=== PATIENT | male | born 2005 | race Two or more races ===

== ENCOUNTER 2023-01-19 07:49 | Emergency (ER) | payer MEDICAID, SELFPAY ==
[2023-01-19 07:53] VITALS: BP 163/100; PULSE 88; RESP 18; TEMP 36.5; O2SAT 98; BMI 19.9
--- NOTE | 2023-01-19 08:19 | CT_ITS ---
The [address] [address] Patient Name: FRAN MERLOS MRN: [id number] date: 2005 Sex: M Assigned Patient Location: ER Current Patient Location: ED.MAIN Accession/Order Number: [id number] Exam Date: 01/19/2023 08:26 Report Date: 01/19/2023 08:52 At the request of: ALLIE HERNANDEZ Procedure: CT facial bones wo con EXAM: CT facial bones wo con HISTORY: Laceration over the right eyebrow after a trip and fall. COMPARISON: None. TECHNIQUE: An axial thin cut noncontrast scan was performed. Sagittal and coronal reformatted images were produced. Dose reduction techniques were achieved by using automated exposure control and/or adjustment of mA and/or kV according to patient size and/or use of iterative reconstruction technique. FINDINGS: No acute fractures are seen. No suspicious or destructive bone lesions. There is mucosal thickening in the maxillary sinuses with small air-fluid levels in the maxillary sinuses the rest of the sinuses are clear. No fluid is seen in the visualized mastoid air cells. The contents of the orbits are normal. There is mild leftward nasal septal deviation. There is some soft tissue swelling and laceration above the right eye. The rest of the visualized structures are normal in appearance. CT/CT facial bones wo con IMPRESSION: No acute osseous injury is identified. Soft tissue injury above the right eye. Acute on chronic maxillary sinus disease. Electronically authenticated by: KEVON WEINSTEIN Date: 01/19/2023 08:52
--- NOTE | 2023-01-19 08:32 | ED_ITS ---
HPI - General Adult General Chief complaint: Skin/Abscess/Foreign Body Stated complaint: LACERATION TO RIGHT EYE Time Seen by Provider: 01/19/23 08:15 Source: patient Mode of arrival: walk-in Limitations: no limitations History of Present Illness HPI narrative: The patient presenting with a right-sided facial injury that he sustained after he fell down tripping over his dog and hitting the side of his car the patient have a laceration to the upper eyelid on the right side he also has some epistaxis that resolved before arrival and his right side of the lip is swollen as well He mentioned that he is up-to-date with his vaccination but he is not sure if he had tetanus or not in the last few years No previous medical history and no loss of consciousness and no other injuries Related Data Previous Rx's Medication Instructions Recorded ibuprofen 600 mg tablet 600 mg PO Q8H PRN pain #20 tabs 01/19/23 Allergies Allergy/AdvReac Type Severity Reaction Status Date / Time No Known Drug Allergies Allergy Verified 01/19/23 07:55 Review of Systems ROS Status of ROS 10 or more systems reviewed and unremarkable except as noted in history and below Exam Narrative Exam Narrative: Nurses notes and vital signs reviewed and patient is not hypoxic. General: Well-appearing and in no apparent distress. Skin: Warm, dry, no pallor noted. No rash. Head: Normocephalic, there is a laceration just above the medial end of the eyebrow on the right side and it is including the eyebrow as well the eye itself and the eye globe shows no injury the right side of the upper and lower lip shows contusion but no laceration, there is a dry blood at the nostril entrance but there is no tenderness upon palpation of the nasal bridge although the patient have tenderness upon palpation of the orbit on the right side Lacerations almost 2 cm irregular edges macerated due to the crush and deep with no foreign body and no exposure of the underlying structures Neck: Supple, non-tender. Eye: Pupils are equal, round and EOMI. No scleral icterus. Ears, Nose, Mouth, and Throat: TM are clear, no nasal mucosal hypertrophy. Oral mucosa is moist, no posterior oropharynx erythema, uvula is mid-line Cardiovascular: Regular Rate and Rhythm without murmur, gallop or rub. Respiratory: No accessory muscle use or respiratory distress. Lungs are clear to auscultation, no wheezing, rales or rhonchi Chest Wall: no tenderness Back: No midline thoracic or lumbar vertebral tenderness. No CVA tenderness Musculoskeletal: normal ROM, no calf or popliteal tenderness, no lower extremity edema/swelling GI: Abdomen is soft, non-distended. Normal bowel sounds. No masses appreciated. No tenderness to palpation. No rebound, guarding, or rigidity noted. Neurological: A&O x4. No cranial nerve dysfunction observed. No truncal ataxia. Moves all extremities. Sensation intact. Psychiatric: Cooperative and interactive. Normal mood and affect. Constitutional Vital Signs, click to edit/add: Last Vital Signs Temp 97.7 F 01/19/23 07:53 Pulse 88 01/19/23 07:53 Resp 18 01/19/23 07:53 BP 163/100 H 01/19/23 07:53 Pulse Ox 98 01/19/23 07:53 O2 Del Method Room Air 01/19/23 07:53 Course Vital Signs Vital signs: Vital Signs Temperature 97.7 F 01/19/23 07:53 Pulse Rate 88 01/19/23 07:53 Respiratory Rate 18 01/19/23 07:53 Blood Pressure 163/100 H 01/19/23 07:53 Pulse Oximetry 98 01/19/23 07:53 Oxygen Delivery Method Room Air 01/19/23 07:53 Temperature 97.7 F 01/19/23 07:53 Pulse Rate 88 01/19/23 07:53 Respiratory Rate 18 01/19/23 07:53 Blood Pressure 163/100 H 01/19/23 07:53 Pulse Oximetry 98 01/19/23 07:53 Oxygen Delivery Method Room Air 01/19/23 07:53 Medical Decision Making [facility] Narrative Medical decision making narrative: CT of the face showed no acute pathology The patient wound was cleaned thoroughly with normal saline and Betadine after which infiltration of the area with 1% lidocaine and 4 observable stitches 5-O applied and then non interrupted 10 stitches of ethilon 5-O The patient tolerated the procedure well wound care advised and the patient to come back in case of any new symptoms or concerns Sutures to be removed 5 to 7 days after placement The patient is to follow up with primary care physician in next 2-3 days or to return to the emergency department should any of the signs or symptoms worsen or new symptoms develop. The patient agrees with the following Diagnosis and Treatment plan and the patient will be discharged home. Discharge Plan Discharge Chief Complaint: Skin/Abscess/Foreign Body Clinical Impression: Laceration of face, Contusion of face, Contusion of lip Patient Disposition: Home, Self-Care Time of Disposition Decision: 09:12 Condition: Good Mode of Transportation: Private Vehicle Prescriptions / Home Meds: New ibuprofen 600 mg tablet 600 mg PO Q8H PRN (Reason: pain) Qty: 20 0RF Instructions: Laceration (ED), Head Injury (ED) Stand Alone Forms: Portal Instructions Referrals: Physician,Non-Staff, MD [Primary Care Provider] - 1 week
[2023-01-19] MEDS: IBUPROFEN 600 MG TABLET PO (08:36)
== END 2023-01-19 09:28 | disposition home or self-care (01) ==
PROVIDERS: Emergency Provider Emergency Medicine
DX: S01.111A Laceration without foreign body of right eyelid and periocular area, initial encounter (principal); S00.531A Contusion of lip, initial encounter; W01.0XXA Fall on same level from slipping, tripping and stumbling without subsequent striking against object, initial encounter
CPT/HCPCS: 12011; 70486; 99284

== ENCOUNTER 2024-12-02 06:04 | Emergency (ER) | payer OTHER, SELFPAY ==
[2024-12-02 06:08] VITALS: BP 113/71; PULSE 87; TEMP 37.4; O2SAT 100; BMI 19.9
--- NOTE | 2024-12-02 06:29 | XR_ITS ---
[place] [address] Patient Name: FRAN MERLOS MRN: [id number] date: 2005 Sex: M Assigned Patient Location: ER Current Patient Location: Accession/Order Number: [id number] Exam Date: 12/02/2024 09:50 Report Date: 12/02/2024 09:51 At the request of: DAWN DALY MD Procedure: XR lumbar spine 2-3V 2 views Lumbar Spine HISTORY: Back pain for one month. No injury COMPARISON: None POSTSURGICAL CHANGES: None BONY ALIGNMENT: Adequate HYPERMOBILITY:No bending imaging. LISTHESIS:None FRACTURE: None DEGENERATIVE CHANGES: Mild spondylosis with lower lumbar facet degeneration. SOFT TISSUES: Unremarkable BONY MINERALIZATION:Adequate XR/XR lumbar spine 2-3V IMPRESSION: Mild lumbar spondylosis greatest at the L5-S1 level. Mild lower lumbar facet degeneration. Impression dictated by: Titus Lozada M.D. 12/02/2024 9:51 AM Dictation Location: [employer] Electronically authenticated by: [id number] Y Date: 12/02/2024 09:51
--- NOTE | 2024-12-02 07:14 | ED_ITS ---
HPI HPI - General Adult General Chief complaint: Back Pain/Injury Stated complaint: back pain Time Seen by Provider: 12/02/24 06:25 Source: patient Mode of arrival: walk-in Limitations: no limitations History of Present Illness HPI narrative: 19-year-old male presents for lower back pain. He has had it for about a month. It initially started after weightlifting but he stopped lifting weights and has been taking ibuprofen but has not gotten much better. There is no specific injury such as a fall. The pain does not radiate and he has no weakness or numbness. No abdominal pain or dysuria. Related Data Previous Rx's ?Medication ?Instructions ?Recorded ibuprofen 800 mg tablet 800 mg PO Q8H PRN pain #20 t abs 12/02/24 methocarbamol 750 mg tablet 750 mg PO Q6H PRN pain #20 tabs 12/02/24 Allergies Allergy/AdvReac Type Severity Reaction Status Date / Time No Known Drug Allergies Allergy Verified 12/02/24 06:16 Opioid HPI Opioid Management Most Recent Opioid Data: Last Pain Scale 6 Today, 06:40 Review of Systems ROS Narrative A ten point review of systems is negative except as noted above. PFSH PFSH Social History Little interest or pleasure in doing things: not at all Feeling down, depressed, or hopeless: not at all Exam Narrative Exam Narrative: Nurses note and vital signs reviewed and patient is not hypoxic. General: The patient appears well and in no apparent distress. Patient is resting comfortably on cart. Skin: Warm, dry, no pallor noted. There is no rash noted. Head: Normocephalic, atraumatic Eye: Normal conjunctiva, no drainage Ears, Nose, Mouth, and Throat: oral mucosa is moist. Nares patent. Cardiovascular: Regular Rate and Rhythm Respiratory: Patient is in no distress, no accessory muscle use, lungs are clear to auscultation, no wheezing, rales or rhonchi Back: No bruise or rash. He has no focal area of tenderness to palpation GI: Soft and nontender Musculoskeletal: The patient has no evidence of calf tenderness, no pitting edema, symmetrical pulses noted bilaterally Neurological: A&O, normal speech; motor strength intact in his lower extremities Psychiatric: Cooperative Constitutional Vital Signs, click to edit/add: Last Vital Signs Temp 99.4 F 12/02/24 06:08 Pulse 87 12/02/24 06:08 Resp 16 12/02/24 06:08 BP 113/71 12/02/24 06:08 Pulse Ox 100 12/02/24 06:08 O2 Del Method Room Air 12/02/24 06:08 Course Vital Signs Vital signs: Vital Signs Temperature 99.4 F 12/02/24 06:08 Pulse Rate 87 12/02/24 06:08 Respiratory Rate 16 12/02/24 06:08 Blood Pressure 113/71 12/02/24 06:08 Pulse Oximetry 100 12/02/24 06:08 Oxygen Delivery Method Room Air 12/02/24 06:08 Temperature 99.4 F 12/02/24 06:08 Pulse Rate 87 12/02/24 06:08 Respiratory Rate 16 12/02/24 06:08 Blood Pressure 113/71 12/02/24 06:08 Pulse Oximetry 100 12/02/24 06:08 Oxygen Delivery Method Room Air 12/02/24 06:08 Medical Decision Making MDM Narrative Medical decision making narrative: Lumbar films on my interpretation showed no acute findings. He will be treated symptomatically with ibuprofen and Robaxin. Treatment diagnosis and follow-up were discussed with the patient. Differential Diagnosis Differential Diagnosis: Lumbar strain, lumbar fracture, degenerative disc disease Imaging Data Lumbar x-ray: My impression: No acute finding Discharge Plan Discharge Chief Complaint: Back Pain/Injury Clinical Impression: Lumbar strain Patient Disposition: Home, Self-Care Time of Disposition Decision: 07:14 Condition: Good Mode of Transportation: Private Vehicle Prescriptions / Home Meds: New ibuprofen 800 mg tablet 800 mg PO Q8H PRN (Reason: pain) Qty: 20 0RF methocarbamol 750 mg tablet 750 mg PO Q6H PRN (Reason: pain) Qty: 20 0RF Print Language: Yoruba Instructions: Low Back Strain (ED) Referrals: Physician,Non-Staff, MD [Primary Care Provider] - 1 week
[2024-12-02 07:31] VITALS: BP 123/60; PULSE 68; TEMP 37.2; O2SAT 97
== END 2024-12-02 07:32 | disposition home or self-care (01) ==
PROVIDERS: Emergency Provider Emergency Medicine
DX: S39.012A Strain of muscle, fascia and tendon of lower back, initial encounter (principal); X50.0XXA Overexertion from strenuous movement or load, initial encounter; M47.816 Spondylosis without myelopathy or radiculopathy, lumbar region
CPT/HCPCS: 72100; 99283